=== PATIENT | female | born 1955 | race Caucasian/White ===

== ENCOUNTER 2018-06-16 21:19 | Emergency (ER) | payer OTHER ==
[2018-06-16 21:24] VITALS: BP 138/85
--- NOTE | 2018-06-16 21:26 | ER Report ---
History and Physical Time Seen By MD: 21:26 HPI/ROS CHIEF COMPLAINT: Right eye discomfort HISTORY OF PRESENT ILLNESS: 63-year-old female patient presents to emergency room with complaint of right eye discomfort. Patient states she noticed that when she was driving to [employer] from [place]. She states that she has had some drainage from the eye. She states that he does have irritation, which he describes more as a gritty sensation. She denies any fevers, chills, nausea, vomiting or diarrhea. Patient denies any visual changes. Patient states that she has not had any sinus congestion or cough recently. Allergies: Coded Allergies: Penicillins (Verified Allergy, Intermediate, 06/16/18) Past Medical/Surgical History Patient denies any pertinent medical history. Patient has surgical history of bowel resection. Reviewed Nurses Notes: Yes Constitutional Vital Sign - Last 24 Hours 06/16/18 21:24 Temp 98.2 Pulse 87 Resp 18 B/P (MAP) 138/85 Pulse Ox 93 O2 Delivery Room Air Physical Exam General appearance: Alert no distress. Respiratory: Chest is non tender, lungs are clear to auscultation. Cardiac: Regular rate and rhythm. Eyes: Right eye is injected, mildly erythematous. Patient does have purulent drainage noted under the lower eyelid. DIFFERENTIAL DIAGNOSIS: After history and physical exam differential diagnosis was considered for conjunctivitis, iritis. Medical Decision Making ED Course/Re-evaluation ED Course Patient was admitted to an exam room, history and physical were obtained. Differential diagnoses were considered. On examination the right eye is injected, erythematous. There is some drainage noted. We will go ahead and treat the patient with Tobrex. She is to do 2 drops 6 times a day. She is to follow-up with an eye doctor in [place] if she develops pain or visual changes. She is return to emergency room if condition worsens. She is to get plenty of rest. I discussed the patient verbalized understanding and agreement with plan. Decision to Disposition Date: Jun 16, 2018 Decision to Disposition Time: 21:38 Depart Departure Latest Vital Signs Vital Signs Date Time Temp Pulse Resp B/P (MAP) Pulse Ox O2 Delivery O2 Flow Rate FiO2 06/16/18 21:24 98.2 87 18 138/85 93 Room Air Impression: Primary Impression: Conjunctivitis Condition: Improved Disposition: HOME OR SELF-CARE Patient Instructions: Conjunctivitis (ED) Additional Instructions: Avoid touching your face. Use a Kleenex to wipe eye, throw the Kleenex away and wash hands immediately. Take your eye drops 2 drops 6 times a day for the next week. Follow up with an eye doctor in [place] if you develop pain or visual changes. Return to the ER if condition worsens. Problem Qualifiers Primary Impression: Conjunctivitis Conjunctivitis type: acute Acute conjunctivitis type: bacterial Laterality: right Qualified Codes: H10.31 - Unspecified acute conjunctivitis, right eye OLIVIA BRAUN Jun 16, 2018 21:26
[2018-06-16] MEDS ORDERED: TOBRAMYCIN 0.3% OP SOLN 5 ML OD ONE (21:35)
== END 2018-06-16 21:46 | disposition home or self-care (01) ==
LOC: ER 21:39
DX: H10.31 Unspecified acute conjunctivitis, right eye (principal)
CPT/HCPCS: 99283